=== PATIENT | male | born 1995 | race Caucasian/White ===

== ENCOUNTER 2020-10-14 19:17 | Emergency (ER) | payer OTHER ==
[~2020-10-14] VITALS: Ht 170.2 cm; Wt 71.7 kg
[2020-10-14 19:23] VITALS: BP_SYST 112
[2020-10-14] MEDS ORDERED: NALOXONE HCL 2 MG/2 ML SYR (NARCAN) IM ONE (20:15)
[2020-10-14] MEDS ORDERED: NALOXONE HCL 2 MG/2 ML SYR ONE (20:16)
[2020-10-14] MEDS ORDERED: NALO4SPR NS (21:29)
[2020-10-14 21:39] VITALS: BP_SYST 112
== END 2020-10-14 21:39 | disposition home or self-care (01) ==
LOC: SED 19:17
DX: T40.601A Poisoning by unspecified narcotics, accidental (unintentional), initial encounter (principal); F19.10 Other psychoactive substance abuse, uncomplicated; M54.2 Cervicalgia; Z79.899 Other long term (current) drug therapy; Y92.89 Other specified places as the place of occurrence of the external cause
CPT/HCPCS: 99283; J2310